=== PATIENT | male | born 1970 | race Caucasian/White ===

== ENCOUNTER → 2023-02-23 09:14 | Outpatient (BNVA) | payer BC, SELFPAY | PROVIDERS: Family Provider Family Medicine; PCP Family Medicine; Visit Provider Family Medicine | DX: I10 Essential (primary) hypertension (principal); L40.9 Psoriasis, unspecified; Z13.6 Encounter for screening for cardiovascular disorders; E03.9 Hypothyroidism, unspecified | CPT/HCPCS: 80053; 80061; 85025; 86140 ==

== ENCOUNTER → 2023-12-02 09:13 | Outpatient (BNVA) | payer BC, SELFPAY | PROVIDERS: Family Provider Family Medicine; PCP Family Medicine; Visit Provider Family Medicine | DX: I10 Essential (primary) hypertension (principal); L40.9 Psoriasis, unspecified; Z13.6 Encounter for screening for cardiovascular disorders; Z00.00 Encounter for general adult medical examination without abnormal findings | CPT/HCPCS: 80053; 80061; 85025 ==